=== PATIENT | female | born 1990 | race American Indian/Alaskan Native ===

== ENCOUNTER 2019-03-29 17:20 | Emergency (ER) | payer MEDICAID, OTHER ==
--- NOTE | 2019-03-29 17:32 | Event Note ---
ED Screening Note ED Screening Note: cough congestion fever and chills off and on for couple weeks pain in chest, wakes her at night also co wheezing started as sinus pt thinks mucous brown social etoh no cig no drugs rx none pmh none psh csec lmp 3 weeks ago has not seen MD This initial assessment/diagnostic orders/clinical plan/treatment(s) is/are subject to change based on patients health status, clinical progression and re- assessment by fellow clinical providers in the ED. Further treatment and workup at subsequent clinical providers discretion. Patient/guardian urged not to elope from the ED as their condition may be serious if not clinically assessed and managed. Initial orders include: xray basic labs
[2019-03-29] MEDS ORDERED: PERCOCET 5/325 PO STA (18:26)
[2019-03-29] MEDS ORDERED: LEVAQUIN PO STA (18:29)
--- NOTE | 2019-03-29 18:32 | Emergency Department Report ---
ED General Adult HPI - General Chief complaint: Upper Respiratory Infection Stated complaint: CHEST PAIN/SOB/PNEUMONIA Time Seen by Provider: 03/29/19 17:29 Source: patient Mode of arrival: Ambulatory Limitations: No Limitations - History of Present Illness Initial comments: 29-year-old Bulgarian female, since emergency department complaining of a 2 week history of cough, congestion, coryza, chills, headaches, loss of appetite. States she's been coughing excessively to the point where she is having some chest discomfort when she takes deep breaths and palpates the anterior aspect of her chest. She reports various episodes of nausea but no vomiting. She is comfortable. Blood phlegm been treating herself with Mucinex tried taking a couple amoxicillin, but the symptoms have not yet resolved. She reports no dysuria or hematuria. No rashes. - Related Data Home Medications Medication Instructions Recorded Confirmed Last Taken Citalopram [celeXA] 10 mg PO QDAY 02/17/14 08/26/15 Unknown Previous Rx's Medication Instructions Recorded Last Taken Type HYDROcodone/APAP 5-325 [[place] 1 each PO Q6HR PRN #10 tablet 02/17/14 Unknown Rx 5/325] Naproxen Sodium (Nf) [Anaprox DS] 550 mg PO BID #10 tablet 02/17/14 Unknown Rx Promethazine [Phenergan] 25 mg PO Q8HR PRN #10 tab 03/22/15 08/17/15 Rx Lidocain2.5%/Prilocai2.5% [Emla] 5 gm TP ONCE #1 tube 08/25/15 Unknown Rx oxyCODONE /ACETAMINOPHEN [Percocet 1 - 2 tab PO Q4HR PRN #30 tablet 08/25/15 Unknown Rx 5/325 mg] ALBUTEROL Inhaler (OR & NICU) 1 puff IH Q4-6H PRN #1 inha 03/29/19 Unknown Rx [ProAir HFA Inhaler] Amoxicillin/Potassium Clav 1 each PO BID #20 tablet 03/29/19 Unknown Rx [Augmentin 875-125 Tablet] guaiFENesin/CODEINE [Robitussin AC] 5 ml PO Q6H PRN #120 ml 03/29/19 Unknown Rx predniSONE [Deltasone] 50 mg PO QDAY #5 tab 03/29/19 Unknown Rx Allergies Allergy/AdvReac Type Severity Reaction Status Date / Time NSAIDS (Non-Steroidal Allergy Shortness Verified 08/05/15 09:24 Anti-Inflamma of Breath ED Review of Systems ROS: Stated complaint: CHEST PAIN/SOB/PNEUMONIA Other details as noted in HPI ED Past Medical Hx - Past Medical History Previous Medical History?: Yes Hx Hypertension: No Hx Congestive Heart Failure: No Hx Diabetes: No Hx Deep Vein Thrombosis: No Hx Renal Disease: No Hx Sickle Cell Disease: No Hx Seizures: No Hx Psychiatric Treatment: Yes (Anxiety) Hx Asthma: No Hx COPD: No Hx HIV: No - Surgical History Past Surgical History?: Yes Additional Surgical History: C section - Social History Smoking Status: Never Smoker Substance Use Type: Alcohol - Medications Home Medications: Home Medications Medication Instructions Recorded Confirmed Last Taken Type Citalopram [celeXA] 10 mg PO QDAY 02/17/14 08/26/15 Unknown History HYDROcodone/APAP 5-325 [[place] 1 each PO Q6HR PRN #10 tablet 02/17/14 08/26/15 Unknown Rx 5/325] Naproxen Sodium (Nf) [Anaprox DS] 550 mg PO BID #10 tablet 02/17/14 08/26/15 Unknown Rx Promethazine [Phenergan] 25 mg PO Q8HR PRN #10 tab 03/22/15 08/26/15 08/17/15 Rx Lidocain2.5%/Prilocai2.5% [Emla] 5 gm TP ONCE #1 tube 08/25/15 Unknown Rx oxyCODONE /ACETAMINOPHEN [Percocet 1 - 2 tab PO Q4HR PRN #30 tablet 08/25/15 Unknown Rx 5/325 mg] ALBUTEROL Inhaler (OR & NICU) 1 puff IH Q4-6H PRN #1 inha 03/29/19 Unknown Rx [ProAir HFA Inhaler] Amoxicillin/Potassium Clav 1 each PO BID #20 tablet 03/29/19 Unknown Rx [Augmentin 875-125 Tablet] guaiFENesin/CODEINE [Robitussin AC] 5 ml PO Q6H PRN #120 ml 03/29/19 Unknown Rx predniSONE [Deltasone] 50 mg PO QDAY #5 tab 03/29/19 Unknown Rx ED Physical Exam - General Limitations: No Limitations ED Course Vital Signs 03/29/19 17:30 Temperature 98.3 F Pulse Rate 83 Respiratory 18 Rate Blood Pressure 138/86 O2 Sat by Pulse 97 Oximetry Critical care attestation.: If time is entered above; I have spent that time in minutes in the direct care of this critically ill patient, excluding procedure time. ED Disposition Clinical Impression: Cough, Musculoskeletal chest pain, Sinusitis Disposition: DC-01 TO HOME OR SELFCARE Is pt being admited?: No Does the pt Need Aspirin: No Condition: Stable Instructions: Chest Pain (ED) Referrals: SHERITA XIE MD [Primary Care Provider] - 2-3 Days
--- NOTE | 2019-03-29 18:46 | XRay Report ---
CHEST 2 VIEWS INDICATION / CLINICAL INFORMATION: Cough, congestion and chills. COMPARISON: None available. FINDINGS: SUPPORT DEVICES: The patient's brassiere was left in place. HEART / MEDIASTINUM: The heart size and pulmonary vasculature are normal. LUNGS / PLEURA: No significant pulmonary or pleural abnormality. No pneumothorax. ADDITIONAL FINDINGS: No significant additional findings. IMPRESSION: No acute findings. There is no evidence of pneumonia. Signer Name: Mickey Clark MD Signed: 03/29/2019 6:41 PM Workstation Name: [id number]
[2019-03-29 21:17] VITALS: BP 124/78
== END 2019-03-29 20:20 | disposition home or self-care (01) ==
LOC: ED 17:20
DX: J32.9 Chronic sinusitis, unspecified (principal); R05 Cough; R07.89 Other chest pain; R11.0 Nausea; F41.9 Anxiety disorder, unspecified; Z79.899 Other long term (current) drug therapy; Z88.8 Allergy status to other drugs, medicaments and biological substances
CPT/HCPCS: 71046; 99283

== ENCOUNTER 2019-07-02 21:20 | Emergency (ER) | payer OTHER ==
[2019-07-02] MEDS ORDERED: ALBUTEROL 2.5 MG/3 ML NEBU IH ONE ×2 (21:30→21:56)
[2019-07-02] MEDS ORDERED: IPRATROPIUM 0.02% NEBU 2.5 ML IH ONE ×2 (21:30→21:56)
[2019-07-02] MEDS ORDERED: dexAMETHasone 20 MG/5 ML VIAL IV ONE (21:30)
[2019-07-02] MEDS ORDERED: SODIUM CHLORIDE 0.9% 1000 ML 1,000 ML IV ONE (21:30)
--- NOTE | 2019-07-02 21:32 | Event Note ---
ED Screening Note Date of service: 07/02/19 Time: 21:32 ED Screening Note: 29 y/o female with go times 1 hour. This initial assessment/diagnostic orders/clinical plan/treatment(s) is/are subject to change based on patients health status, clinical progression and re- assessment by fellow clinical providers in the ED. Further treatment and workup at subsequent clinical providers discretion. Patient/guardian urged not to elope from the ED as their condition may be serious if not clinically assessed and managed. Initial orders include:
[2019-07-02 21:39] VITALS: BP 118/87
[2019-07-02] MEDS ORDERED: MAGNESIUM SULFATE 2 GM/50 ML BAG IV ONE (21:57)
--- NOTE | 2019-07-02 22:18 | Emergency Department Report ---
ED Asthma HPI - General Chief Complaint: Dyspnea/Respdistress Stated Complaint: DIFF BREATHING Time Seen by Provider: 07/02/19 21:30 Source: patient Mode of arrival: Ambulatory Limitations: No Limitations - History of Present Illness Initial Comments: CC: I can't breathe. HPI: Genet is a 29 yo female with hx of asthma. She has had shortness of breath and wheezing. She states the night time air is her trigger. She has follow up with her pulmologist in 2 days on . She is also followed by her PCP. No cough. No chest pain. No fever. MD Complaint: "asthma attack" -: hour(s) (1) Severity: mild Context: other (night air) Associated Symptoms: none - Related Data Home Medications Medication Instructions Recorded Confirmed Last Taken Citalopram [celeXA] 10 mg PO QDAY 02/17/14 08/26/15 Unknown Previous Rx's Medication Instructions Recorded Last Taken Type HYDROcodone/APAP 5-325 [[place] 1 each PO Q6HR PRN #10 tablet 02/17/14 Unknown Rx 5/325] Naproxen Sodium (Nf) [Anaprox DS] 550 mg PO BID #10 tablet 02/17/14 Unknown Rx Promethazine [Phenergan] 25 mg PO Q8HR PRN #10 tab 03/22/15 08/17/15 Rx Lidocain2.5%/Prilocai2.5% [Emla] 5 gm TP ONCE #1 tube 08/25/15 Unknown Rx oxyCODONE /ACETAMINOPHEN [Percocet 1 - 2 tab PO Q4HR PRN #30 tablet 08/25/15 Unknown Rx 5/325 mg] ALBUTEROL Inhaler (OR & NICU) 1 puff IH Q4-6H PRN #1 inha 03/29/19 Unknown Rx [ProAir HFA Inhaler] Amoxicillin/Potassium Clav 1 each PO BID #20 tablet 03/29/19 Unknown Rx [Augmentin 875-125 Tablet] guaiFENesin/CODEINE [Robitussin AC] 5 ml PO Q6H PRN #120 ml 03/29/19 Unknown Rx predniSONE [Deltasone] 50 mg PO QDAY #5 tab 03/29/19 Unknown Rx ALBUTEROL Inhaler (OR & NICU) 2 puff IH QID PRN #8.5 gram 07/02/19 Unknown Rx [ProAir HFA Inhaler] Azithromycin [Zithromax TAB] 250 mg PO QDAY 4 Days #4 tablet 07/02/19 Unknown Rx Allergies Allergy/AdvReac Type Severity Reaction Status Date / Time NSAIDS (Non-Steroidal Allergy Shortness Verified 08/05/15 09:24 Anti-Inflamma of Breath ED Review of Systems ROS: Stated complaint: DIFF BREATHING Other details as noted in HPI Comment: All other systems reviewed and negative Constitutional: denies: fever, malaise Respiratory: denies: cough Cardiovascular: denies: chest pain ED Past Medical Hx - Past Medical History Previous Medical History?: Yes Hx Hypertension: No Hx Congestive Heart Failure: No Hx Diabetes: No Hx Deep Vein Thrombosis: No Hx Renal Disease: No Hx Sickle Cell Disease: No Hx Seizures: No Hx Psychiatric Treatment: Yes (Anxiety) Hx Asthma: Yes Hx COPD: No Hx HIV: No - Surgical History Past Surgical History?: Yes Additional Surgical History: C section - Social History Smoking Status: Never Smoker Substance Use Type: None - Medications Home Medications: Home Medications Medication Instructions Recorded Confirmed Last Taken Type Citalopram [celeXA] 10 mg PO QDAY 02/17/14 08/26/15 Unknown History HYDROcodone/APAP 5-325 [[place] 1 each PO Q6HR PRN #10 tablet 02/17/14 08/26/15 Unknown Rx 5/325] Naproxen Sodium (Nf) [Anaprox DS] 550 mg PO BID #10 tablet 02/17/14 08/26/15 Unknown Rx Promethazine [Phenergan] 25 mg PO Q8HR PRN #10 tab 03/22/15 08/26/15 08/17/15 Rx Lidocain2.5%/Prilocai2.5% [Emla] 5 gm TP ONCE #1 tube 08/25/15 Unknown Rx oxyCODONE /ACETAMINOPHEN [Percocet 1 - 2 tab PO Q4HR PRN #30 tablet 08/25/15 Unknown Rx 5/325 mg] ALBUTEROL Inhaler (OR & NICU) 1 puff IH Q4-6H PRN #1 inha 03/29/19 Unknown Rx [ProAir HFA Inhaler] Amoxicillin/Potassium Clav 1 each PO BID #20 tablet 03/29/19 Unknown Rx [Augmentin 875-125 Tablet] guaiFENesin/CODEINE [Robitussin AC] 5 ml PO Q6H PRN #120 ml 03/29/19 Unknown Rx predniSONE [Deltasone] 50 mg PO QDAY #5 tab 03/29/19 Unknown Rx ALBUTEROL Inhaler (OR & NICU) 2 puff IH QID PRN #8.5 gram 07/02/19 Unknown Rx [ProAir HFA Inhaler] Azithromycin [Zithromax TAB] 250 mg PO QDAY 4 Days #4 tablet 07/02/19 Unknown Rx ED Physical Exam - General Limitations: No Limitations General appearance: alert, in no apparent distress, anxious, other (speaking full sentences) - Head Head exam: Present: atraumatic, normocephalic - Eye Eye exam: Present: normal appearance - ENT ENT exam: Present: mucous membranes moist - Neck Neck exam: Present: normal inspection - Respiratory Respiratory exam: Present: normal lung sounds bilaterally. Absent: respiratory distress, wheezes, rales, rhonchi, chest wall tenderness, accessory muscle use, decreased breath sounds, prolonged expiratory - Cardiovascular Cardiovascular Exam: Present: regular rate, normal rhythm, normal heart sounds. Absent: systolic murmur, diastolic murmur, rubs, gallop - GI/Abdominal GI/Abdominal exam: Present: soft, normal bowel sounds. Absent: distended, tenderness, guarding, rebound - Extremities Exam Extremities exam: Present: normal inspection - Back Exam Back exam: Present: normal inspection - Neurological Exam Neurological exam: Present: alert, oriented X3 - Psychiatric Psychiatric exam: Present: normal affect, normal mood - Skin Skin exam: Present: warm, dry, intact, normal color. Absent: rash ED Course Vital Signs 07/02/19 07/02/19 21:27 22:11 Temperature 98.9 F Pulse Rate 107 H Pulse Rate [ 99 H Bilateral] Respiratory 26 H Rate Respiratory 26 H Rate [Bilateral ] Blood Pressure 118/87 O2 Sat by Pulse 100 Oximetry ED Medical Decision Making - Medical Decision Making mild asthma exacerbation, Normal lung exam. One dose prednisone provided in the ED. She previously had a course of steroids 3 weeks ago. Will give azithromycin for possible atypical infection. genet feels much better after treatment provided in the Ed. She is comfortable without work of breathing. Speaking with ease. Critical care attestation.: If time is entered above; I have spent that time in minutes in the direct care of this critically ill patient, excluding procedure time. ED Disposition Clinical Impression: Asthma exacerbation Disposition: DC-01 TO HOME OR SELFCARE Is pt being admited?: No Does the pt Need Aspirin: No Condition: Stable Instructions: Asthma (ED) Prescriptions: ALBUTEROL Inhaler (OR & NICU) [ProAir HFA Inhaler] 2 puff IH QID PRN #8.5 gram PRN Reason: Shortness Of Breath Azithromycin [Zithromax TAB] 250 mg PO QDAY 4 Days #4 tablet Forms: Work/School Release Form(ED)
[2019-07-02] MEDS ORDERED: AZITHROMYCIN 250 MG TAB PO ONE (22:19)
== END 2019-07-02 23:50 | disposition home or self-care (01) ==
LOC: ED 21:20
DX: J45.901 Unspecified asthma with (acute) exacerbation (principal); F41.9 Anxiety disorder, unspecified; Z79.899 Other long term (current) drug therapy; Z88.6 Allergy status to analgesic agent
CPT/HCPCS: 94644; 96365; 96375; 99283; J1100; J3475; J7030; 96361

== ENCOUNTER 2020-02-11 08:01 | Outpatient (CLI) | payer MEDICAID ==
[2020-02-11 08:40] VITALS: BP 126/74
[2020-02-11 09:04] LABS: Bacteria,Urine 1+ /HPF (Negative); Bilirubin,Urine NEG (Negative); Blood,Urine NEG (Negative); Color,Urine Colorless (Yellow); Protein,Urine <15 mg/dL mg/dL (Negative); Urobilinogen,Urine < 2.0 mg/dL (<2.0); WBC,Urine < 1.0 /HPF (0.0-6.0)
--- NOTE | 2020-02-11 09:12 | History and Physical Report ---
History of Present Illness Date of examination: 02/11/20 (leaking fluid >24hours @33w) Chief complaint: I have been "wet" since before I left [facility]. Past History - Obstetrical History Expected Date of Delivery: 03/30/20 Actual Gestation: 33 Week(s) 1 Day(s) : 3 Medications and Allergies Allergies Allergy/AdvReac Type Severity Reaction Status Date / Time NSAIDS (Non-Steroidal Allergy Shortness Verified 08/05/15 09:24 Anti-Inflamma of Breath Home Medications Medication Instructions Recorded Confirmed Last Taken Type Citalopram [celeXA] 10 mg PO QDAY 02/17/14 08/26/15 Unknown History HYDROcodone/APAP 5-325 [[place] 1 each PO Q6HR PRN #10 tablet 02/17/14 08/26/15 Unknown Rx 5/325] Naproxen Sodium (Nf) [Anaprox DS] 550 mg PO BID #10 tablet 02/17/14 08/26/15 Unknown Rx RX: Promethazine [Phenergan] 25 mg PO Q8HR PRN #10 tab 03/22/15 08/26/15 08/17/15 Rx Lidocain2.5%/Prilocai2.5% [Emla] 5 gm TP ONCE #1 tube 08/25/15 Unknown Rx RX: oxyCODONE /ACETAMINOPHEN 1 - 2 tab PO Q4HR PRN #30 tablet 08/25/15 Unknown Rx [Percocet 5/325 mg] Amoxicillin/Potassium Clav 1 each PO BID #20 tablet 03/29/19 Unknown Rx [Augmentin 875-125 Tablet] RX: Albuterol INH(or & Nicu Only) 1 puff IH Q4-6H PRN #1 inha 03/29/19 Unknown Rx [ProAir HFA Inhaler] RX: predniSONE [Deltasone] 50 mg PO QDAY #5 tab 03/29/19 Unknown Rx guaiFENesin/CODEINE [Robitussin AC] 5 ml PO Q6H PRN #120 ml 03/29/19 Unknown Rx RX: Albuterol INH(or & Nicu Only) 2 puff IH QID PRN #8.5 gram 07/02/19 Unknown Rx [ProAir HFA Inhaler] RX: Azithromycin [Zithromax TAB] 250 mg PO QDAY 4 Days #4 tablet 07/02/19 Unknown Rx - Vital Signs Vital signs: Vital Signs Pulse Pulse Ox 78 100 02/11/20 08:29 02/11/20 08:29 Temp Pulse Resp BP Pulse Ox 97.7 F 75 16 126/74 97 02/11/20 08:32 02/11/20 08:49 02/11/20 08:32 02/11/20 08:39 02/11/20 08:49 Results All other labs normal.
--- NOTE | 2020-02-11 09:43 | Ultrasound Report ---
Limited OB Ultrasound Biophysical profile HISTORY: AMANDEEP. TECHNIQUE: Grayscale and color imaging performed. COMPARISON: No recent relevant comparison exam is available. FINDINGS: There is a single viable intrauterine gestation with cephalic presentation. The AMANDEEP is 8 cm . Heart rate is 156 bpm. On biophysical profile, the fetus received a score of 2 out of 2 for breathing movement, movement, po sture/tone, and qualitative AMANDEEP. Total score was 8 out of 8. IMPRESSION: 1. Single viable intrauterine gestation as above with AMANDEEP of 8 cm. 2. Normal BPP. Signer Name: Cristóbal Calderon MD Signed: 02/11/2020 9:38 AM Workstation Name: [id number]
== END 2020-02-11 10:26 | disposition home or self-care (01) ==
LOC: APU 08:01 → TRG 08:01
PROVIDERS: ATTEND Obstetrics & Gynecology
DX: O99.89 Other specified diseases and conditions complicating pregnancy, childbirth and the puerperium (principal); N89.8 Other specified noninflammatory disorders of vagina; Z3A.33 33 weeks gestation of pregnancy
CPT/HCPCS: 59025; 76815; 76819; 81001

== ENCOUNTER 2020-03-24 05:35 | Inpatient (IN) | payer OTHER, MEDICAID ==
--- NOTE | 2020-03-23 13:14 | History and Physical Report ---
History of Present Illness Date of examination: 03/20/20 Chief complaint: Repeat C/S History of present illness: Past History : 3 Term Births: 1 Premature Births: 0 Living Children: 1 Para: 1 Mult. Births: 0 Prev : 1 Aborta: 1 Elect. Ab: 1 Spont. 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 Infection History Hx of STD: none HIV Risk Eval: low risk Hepatitis B Risk Eval: low risk Genetic History Congenital Heart Defect: Mom: no Dad: no Diane Disease: Mom: no Dad: no Thalassemia Mom: no Dad: no Neural Tube Defect Mom: no Dad: no Down's Syndrome Mom: no Dad: no Cristhian-Sachs Mom: no Dad: no Sickle Cell Disease/Trait Mom: no Dad: no Hemophilia Mom: no Dad: no Muscular Dystrophy Mom: no Dad: no Cystic Fibrosis Mom: no Dad: no [place] Chorea Mom: no Dad: no Mental Retardation Mom: no Dad: no Fragile X Mom: no Dad: no Other Genetic/Chromosomal Disorder Mom: no Dad: no Child w/other defect Mom: no Dad: no Enviromental Exposures Xray Exposure: yes Medication, drug, or alcohol use since LMP: no Chemical/Other Exposure: no Exposure to Cat Liter: no Hx of Parvovirus (Fifth Disease): no Comments: CXR 07/2019 Current Allergies (reviewed today): TRAMADOL (Critical) TYLENOL (Critical) Physical Exam General appearance: well nourished, healthy appearing, no distress Chest/Lungs: respiratory effort normal, lungs clear to auscultation Cardiovascular: normal rate and rhythm Abdomen/GI: soft, nontender Neuro: grossly normal DTRs, sensation, strength, cranial nerves Extremities: no discoloration or edema Problem # 1: Maternal care for low transverse scar from previous delivery (DHD61-H53.211) Consent reviewed and signed. The risks and alternatives for this surgery were reviewed with the patient. She was informed of possible bleeding, infection, injury to bowel, bladder, ureters or other adjacent organs. The patient was instructed/informed the following: The normal length of hospital stay for this procedure. Nothing to eat or drink after midnight the evening prior to surgery. Clear liquids until 3hour prio to arriving at hospital The usual discomforts associated with this procedure were detailed. Proper use of pain medicines was reviewed. Patient was given ample opportunity to have all her questions answered before signing informed consent. She declines sterilization at this time. Problem # 2: GBS positive (ICD-V02.51) (OVQ99-S76.330) Problem # 3: Supervision of other high risk pregnancies, third trimester (ICD- V23.89) (RLS71-Y32.893) Problem # 4: Supervision of with insufficient care, third trimester (ICD-V23.7) (LZV67-Y11.33) Problem # 5: Low grade squamous intraepithelial lesion on cytologic smear of cervix (LGSIL) (ICD-795.03) (UMR16-F50.612) Problem # 6: Asthma (ICD-493.90) (VMT14-G87.909) Her updated medication list for this problem includes: Symbicort Aerosol (Budesonide-formoterol fumarate aero) Prednisone Tablet (Prednisone tabs) Past History - Obstetrical History Expected Date of Delivery: 03/30/20 Actual Gestation: 39 Week(s) 0 Day(s) : 3 Medications and Allergies Allergies Allergy/AdvReac Type Severity Reaction Status Date / Time NSAIDS (Non-Steroidal Allergy Shortness Verified 08/05/15 09:24 Anti-Inflamma of Breath Home Medications Medication Instructions Recorded Confirmed Last Taken Type Citalopram [celeXA] 10 mg PO QDAY 02/17/14 08/26/15 Unknown History HYDROcodone/APAP 5-325 [[place] 1 each PO Q6HR PRN #10 tablet 02/17/14 08/26/15 Unknown Rx 5/325] Naproxen Sodium (Nf) [Anaprox DS] 550 mg PO BID #10 tablet 02/17/14 08/26/15 Unknown Rx Promethazine [Phenergan] 25 mg PO Q8HR PRN #10 tab 03/22/15 08/26/15 08/17/15 Rx Lidocain2.5%/Prilocai2.5% [Emla] 5 gm TP ONCE #1 tube 08/25/15 Unknown Rx oxyCODONE /ACETAMINOPHEN [Percocet 1 - 2 tab PO Q4HR PRN #30 tablet 08/25/15 Unknown Rx 5/325 mg] Albuterol Mdi (or & Nicu Only) 1 puff IH Q4-6H PRN #1 inha 03/29/19 Unknown Rx [ProAir HFA Inhaler] Amoxicillin/Potassium Clav 1 each PO BID #20 tablet 03/29/19 Unknown Rx [Augmentin 875-125 Tablet] guaiFENesin/CODEINE [Robitussin AC] 5 ml PO Q6H PRN #120 ml 03/29/19 Unknown Rx predniSONE [Deltasone] 50 mg PO QDAY #5 tab 03/29/19 Unknown Rx Albuterol Mdi (or & Nicu Only) 2 puff IH QID PRN #8.5 gram 07/02/19 Unknown Rx [ProAir HFA Inhaler] Azithromycin [Zithromax TAB] 250 mg PO QDAY 4 Days #4 tablet 07/02/19 Unknown Rx Active Meds: Active Medications Citric Acid/Sodium Citrate (Bicitra) 30 ml PO ONCE ONE Stop: 03/24/20 06:31 Famotidine (Pepcid) 20 mg IV ONCE ONE Stop: 03/24/20 06:31 Oxytocin/Sodium Chloride (Pitocin/Ns 20 Unit/1000ml Drip) 20 units in 1,000 mls @ 0 mls/hr IV TITR LIZZY Lactated Ringer's (Lactated Ringers) 1,000 mls @ 2,250 mls/hr IV PREOP LIZZY Stop: 03/25/20 05:57 Cefazolin Sodium (Ancef/Sterile Water 2 Gm/20 Ml) 2 gm in 20 mls @ 80 mls/hr IV PREOP NR; Protocol Metoclopramide HCl (Reglan) 10 mg IV ONCE ONE Stop: 03/24/20 06:31 Results All other labs normal. Assessment and Plan - Patient Problems (1) 39 weeks gestation of Status: Acute (2) Maternal care due to low transverse uterine scar from previous delivery Status: Chronic (3) Asthma Status: Chronic (4) GBS (group B Streptococcus carrier), +RV culture, currently Status: Acute
[~2020-03-24 05:35] MED LIST: LACTATED RINGERS 1,000 ML IV SCH; OXYTOCIN 20 UNIT/1000ML DRIP 20 UNITS/1,000 ML BAG IV SCH
--- NOTE | 2020-03-24 06:15 | Anesthesia Day of Surgery ---
Anesthesia Day of Surgery - Day of Surgery Patient Examined: Yes Patient H&P Reviewed: Yes Patient is NPO: Yes Beta Blockers: No Cardiac Clearance: No Pulmonary Clearance: No Eron's Test: N/A
--- NOTE | 2020-03-24 06:20 | Anesthesia Consultation ---
Anesthesia Consult and Med Hx Date of service: 03/24/20 - Airway Anesthetic Teeth Evaluation: Good ROM Head & Neck: Adequate Mental/Hyoid Distance: Adequate Mallampati Class: Class II Intubation Access Assessment: Probably Good - Pulmonary Exam CTA: No (wheezing left upper) - Cardiac Exam Cardiac Exam: RRR - Pre-Operative Health Status ASA Pre-Surgery Classification: ASA3 Proposed Anesthetic Plan: Spinal - Pulmonary Hx Smoking: Yes (stop 6yrs) Hx Asthma: Yes (used 3wks ago) Hx Respiratory Symptoms: No SOB: No COPD: No Home Oxygen Therapy: No Hx Pneumonia: No Hx Sleep Apnea: No - Cardiovascular System Hx Hypertension: No Hx Coronary Artery Disease: No Hx Heart Attack/AMI: No Hx Angina: No Hx Percutaneous Transluminal Coronary Angioplasty (PTCA): No Hx Cardia Arrhythmia: No Hx Pacemaker: No Hx Internal Defibrillator: No Hx Valvular Heart Disease: No Hx Heart Murmur: No Hx Peripheral Vascular Disease: No - Central Nervous System Hx Neuromuscular Disorder: Yes (back and neck pain with arm pain) Hx Seizures: No CVA: No Hx Back Pain: Yes Hx Psychiatric Problems: Yes (anxiety) - Gastrointestinal Hx Ulcer: No Hx Gastroesophageal Reflux Disease: Yes - Endocrine Hx Renal Disease: No Hx End Stage Renal Disease: No Hx Cirrhosis: No Hx Liver Disease: No Hx Insulin Dependent Diabetes: No Hx Non-Insulin Dependent Diabetes: No Hx Thyroid Disease: No Hx Hypothyroidism: No Hx Hyperthyroidism: No - Hematic Hx Anemia: No Hx Sickle Cell Disease: No - Other Systems Hx Alcohol Use: No Hx Substance Use: No Hx Cancer: No Hx Obesity: Yes
[2020-03-24] MEDS ORDERED: ONDANSETRON 4 MG/2 ML INJ IV PRN (06:26)
[2020-03-24] MEDS ORDERED: HYDROmorphone 1 MG/1 ML INJ IV PRN (06:26)
[2020-03-24] MEDS ORDERED: NALOXONE 0.4 MG/1 ML INJ IV PRN ×2 (06:26→11:34)
[2020-03-24] MEDS ORDERED: METOCLOPRAMIDE 10 MG/2 ML INJ IV ONE (06:30)
[2020-03-24] MEDS ORDERED: BICITRA ORAL LIQD 30ML PO ONE (06:30)
[2020-03-24] MEDS ORDERED: FAMOTIDINE 20 MG/2 ML INJ IV ONE (06:30)
[2020-03-24] MEDS ORDERED: ceFAZolin/Water 2 GM/20 ML 2 GM/20 ML SYRINGE IV NR (06:30)
[2020-03-24] MEDS ORDERED: DEXMEDETOMIDINE 200 MCG/2 ML VIAL IV ONE (06:41)
[2020-03-24] MEDS ORDERED: ONDANSETRON 4 MG/2 ML INJ ONE (06:41)
[2020-03-24 07:10] LABS: Hematocrit 37.4 % (30.3-42.9); Hemoglobin 12.3 gm/dl (10.1-14.3); Mean Corpuscular HGB Conc 33 % (30-34); Mean Corpuscular Volume 89 fl (79-97); Platelet Count 286 K/mm3 (140-440); Red Blood Count 4.21 M/mm3 (3.65-5.03); Red Cell Distribution Width 13.7 % (13.2-15.2)
[2020-03-24] MEDS ORDERED: SODIUM CHLORIDE 0.9% IRR 1,500 ML BOTTLE IR ONE (07:56)
[2020-03-24] MEDS ORDERED: WATER FOR IRRIG STERILE 1,500 ML BOTTLE IR ONE (07:56)
[2020-03-24] MEDS ORDERED: PHENYLEPHRINE/NS 1,000 MCG/10 ML SYRINGE (OR USE) IV ONE (07:56)
[2020-03-24] MEDS ORDERED: ceFAZolin/STERILE WATER 2 GM/20 ML SYRINGE IV ONE (08:04)
[2020-03-24] MEDS ORDERED: SODIUM CHLORIDE 0.9% 500 ML 500 ML ONE (08:26)
[2020-03-24] MEDS ORDERED: BUPIVACAINE /DEX-WATER 0.75% (2 ML) AMPULE INFILTRATI ONE (08:28)
[2020-03-24] MEDS ORDERED: BUPIVACAINE/PF (0.5%) 5 MG/1 ML 30 ML VIAL INFILTRATI ONE (08:28)
--- NOTE | 2020-03-24 09:29 | Operative Report ---
Operative Report Operative Report: Date of operation: 03/24/2020 Pre-operative diagnosis: 1. 39 weeks gestational age 2. Previous delivery desires repeat 3. GBS positive 4. BMI 41.2 kg/m 5. Asthma Post-operative diagnosis: 1. 39 weeks gestational age 2. Previous delivery desires repeat 3. GBS positive 4. BMI 41.2 kg/m 5. Asthma Procedure name(s): Low transverse delivery Surgeon: Mariluz Garland MD Medical Office Clerk: Savana Messina CNM Anesthesia: Spinal EBL: 800 mL Urine output: 250 mL of clear urine out at the end of the procedure Fluids: 2000 mL Findings: Liveborn male weight 6 Lbs. 10 oz. Apgars of 8 and 9 at one and 5 minutes. Grossly normal tubes and ovaries and uterus Indications: [] Procedure: Patient was taking to the operating room. Spinal anesthesia was placed. Patient was then prepped and draped in the usual sterile fashion Timeout was performed. Once an appropriate level of anesthesia was noted, a Pfannenstiel incision was made and extended the fascia which was incised and extended lateral direction. The overlying fascia was sharply dissected away from the underlying rectus muscles in the superior inferior direction. The midline was entered bluntly. Bladder blade was placed. Vesicouterine fold was incised with blunt dissection bladder flap was created. A transverse incision was made in the lower uterine segment and extended superolateral direction with finger fractionation. Clear fluid was noted. was delivered from the cephalic R OT position, with spontaneous cry and excellent tone. Mouth and nose bulb suctioned. Cord was doubly clamped and cut was given to the resuscitation team present. Placenta was delivered. The uterus was exteriorized and cleaned of any further placental tissue and products of conception. Uterine incision was approximated using 0 Vicryl in a running interlocking stitch followed by further suture of 0 Vicryl in imbricating fashion. When hemostasis was noted the uterus was allowed back in the pelvic cavity. Pelvis was irrigated with warm normal saline. Once hemostasis was noted the rectus muscles were approximated using 0 Vicryl interrupted simple stitches 3. Once hemostasis was noted the fascia was approximated using 0 Vicryl simple running stitch. The incision was irrigated with warm saline, once hemostasis as noted, the subcuticular adipose tissue was reapproximated using 3-0 Vicryl in a simple running fashion. Skin was approximated using 4-0 Vicryl on a Rodri needle in a subcuticular manner. Counts were correct x3. Patient tolerated the procedure well, she was taken to recovery room in stable condition.
[2020-03-24] MEDS ORDERED: LANOLIN/ZINC/DIMETHICONE (LANSINOH) 7 GM TP PRN (11:34)
[2020-03-24] MEDS ORDERED: D5W/LACTATED RINGERS 1,000 ML IV SCH (11:34)
[2020-03-24] MEDS ORDERED: MORPHINE 2 MG/1 ML INJ IV PRN (11:34)
[2020-03-24] MEDS ORDERED: OXYTOCIN 20 UNIT/1000ML DRIP 20 UNITS/1,000 ML BAG IV SCH (11:34)
[2020-03-24] MEDS ORDERED: WITCH HAZEL/ GLYCERIN PAD TP PRN (11:34)
[2020-03-24] MEDS ORDERED: ACETAMINOPHEN 325 MG TAB PO SCH (12:00)
[2020-03-24] MEDS: MORPHINE 4 MG/1 ML INJ IV PRN ×2 (12:19→21:47)
[2020-03-24] MEDS: ACETAMINOPHEN 500 MG TAB PO SCH ×2 (12:49→17:02)
[2020-03-24] MEDS: ceFAZolin/NS 1 GM/50 ML 1 GM/50 ML BAG IV SCH (15:08)
[2020-03-24] MEDS: GABAPENTIN 100 MG CAP PO SCH ×2 (15:08→23:00)
--- NOTE | 2020-03-24 21:25 | Post Anesthesia Evaluation ---
- Post Anesthesia Evaluation Patient Participated: Yes Airway Patent: Yes Stable Respiratory Function: Yes Nausea/Vomiting: No Temp > 96.8F: Yes Pain Manageable: Yes Adequeate Hydration: Yes Anesthesia Complications: No Block Receding Appropriately: Yes Patient on Ventilator: No
[2020-03-24 22:18] LABS: Hematocrit 34.6 % (30.3-42.9); Hemoglobin 11.2 gm/dl (10.1-14.3)
[2020-03-25] MEDS: ceFAZolin/NS 1 GM/50 ML 1 GM/50 ML BAG IV SCH (00:56)
[2020-03-25] MEDS: MORPHINE 4 MG/1 ML INJ IV PRN (04:48)
[2020-03-25] MEDS: GABAPENTIN 100 MG CAP PO SCH ×2 (06:41→15:01)
--- NOTE | 2020-03-25 07:17 | Progress Note ---
Assessment and Plan Pt req binder Nurse will place and remove dressing. VSS H&H Stable day 1 s/p c/s P: continue pathway Advance diet and activity as tolerated Subjective - Subjective Date of service: 03/25/20 (requests binder) Principal diagnosis: Day # 1 s/p repeat section Patient reports: voiding normally, pain well controlled, ambulating normally : doing well Objective - Vital Signs Latest vital signs: Vital Signs Temp Pulse Resp BP BP Pulse Ox 03/25/20 04:00 98.6 F 69 16 113/72 03/25/20 00:00 98.7 F 71 18 105/79 03/24/20 19:30 98.6 F 66 16 102/77 03/24/20 17:02 18 03/24/20 16:41 97.8 F 82 18 120/54 97 03/24/20 12:49 18 03/24/20 12:19 18 03/24/20 10:50 98.6 F 85 19 116/65 100 03/24/20 10:30 98.0 F 78 18 116/64 100 03/24/20 10:15 84 16 102/55 100 03/24/20 10:00 86 15 105/66 100 03/24/20 09:45 89 14 97/60 100 03/24/20 09:35 86 16 90/60 100 03/24/20 09:30 88 19 100/57 99 03/24/20 09:22 97.7 F 97 H 18 95/57 100 03/24/20 07:30 98.0 F 86 16 116/66 100 03/24/20 07:27 86 116/66 Intake and Output 03/24/20 03/25/20 03/25/20 22:59 06:59 14:59 Intake Total 250 Output Total 2450 1999 Balance -2199 Intake: IV 50 ANCEF/NS 1 GM/50 ML 1 gm 50 In 50 ml @ 100 mls/hr IV Q8H [facility] Rx#:[id number] Oral 200 Output: Urine 2450 1999 Indwelling Catheter 2450 Void 1999 Other: Total, Intake Amount 200 Total, Output Amount 650 800 # Voids Indwelling Catheter 1 Void 1 - Exam Breasts: Present: normal Cardiovascular: Present: Regular rate Lungs: Present: Normal air movement Abdomen: Present: normal appearance, soft, normal bowel sounds Uterus: Present: normal, fundal height below umbilicus Extremities: Present: normal Incision: Present: normal, dry, intact, dressed
[2020-03-25] MEDS: oxyCODONE /ACETAMINOPHEN 5-325MG TAB PO PRN ×3 (07:40→20:36)
[2020-03-25] MEDS ORDERED: ACETAMINOPHEN 325 MG TAB PO PRN (09:19)
[2020-03-25] MEDS ORDERED: DIPHtheria,PERTUSSIS(ACELL),TETANUS VACCINE/PF 0.5 ML VIAL IM ONE (09:22)
[2020-03-26] MEDS: oxyCODONE /ACETAMINOPHEN 5-325MG TAB PO PRN ×3 (02:24→20:24)
--- NOTE | 2020-03-26 07:53 | Discharge Summary ---
Providers - Providers Date of Admission: 03/24/20 05:35 Date of discharge: 03/26/20 (Pt agrees with D/C home today) Attending physician: MANAS SILVA 03/24/20 11:34 Consult to Fancy Stitcher [CONS] Routine Reason For Exam: Primary care physician: MANAS SILVA Hospitalization Reason for admission: section Delivery: Procedure: repeat low transverse Episiotomy: none Laceration: none Incision: normal, dry, intact Other procedures: none complications: none Discharge diagnosis: IUP at term delivered [place] baby: male Pertinent studies: Post-op H/H Hospital course: 30 y.o. female, , repeat C/S at 39 weeks gestation. Uncomplicated repeat C/S and PP course. P: D/C home today. F/U in office in 1 week for incision check. Condition at discharge: Good Disposition: DC-01 TO HOME OR SELFCARE - Discharge Diagnoses (1) delivery, delivered, current hospitalization Status: Acute Comment: Pt laying in bed quietly. No visible s/s of distress. VSSAF. Pain well managed with pain medication. Ambulating and voiding without difficulty. +flatus. Incision clean, dry, intact, and open to air. Fundus firm at umbilicus. Light vaginal bleeding. Breast and formula feeding. Desires circumcision at 8 days of life. No plans for PP contraception at this time. P: D/C home today. F/U in 1 week for incision check. Plan - Discharge Medications Prescriptions: Lidocain2.5%/Prilocai2.5% [Emla] 5 gm TP ONCE #1 tube oxyCODONE /ACETAMINOPHEN [Percocet 5/325 mg] 1 - 2 tab PO Q6HR PRN #20 tablet PRN Reason: Pain - Provider Discharge Summary Activity: no sex for 6 weeks, no heavy lifting 4 weeks, no strenuous exercise Diet: routine Additional instructions: [] Smoking cessation referral if applicable(refer to patient education folder for contact #) [] Refer to [facility] Booklet Call your doctor immediately for: * Fever > 100.5 * Heavy vaginal bleeding ( >1 pad per hour) * Severe persistent headache * Shortness of breath * Reddened, hot, painful area to leg or breast * Drainage or odor from incision. * Keep incision clean and dry at all times and follow doctor's instructions regarding bathing/showering - Follow up plan Follow up: MANAS SILVA MD [Primary Care Provider] - 7 Days (Congratulations! Please contact our office at [phone] to schedule your son's circumcision appointment in 1-week. Bring EMLA cream to his appointment for further instruction. Also call to schedule your 1-week incision check appointment. Feel free to contact us with any questions or concerns. )
[2020-03-26] MEDS ORDERED: ALBUTEROL 2.5 MG/3 ML NEBU IH PRN ×2 (19:31→19:45)
[2020-03-26] MEDS ORDERED: ALBUTEROL 8.5 GM MDI INHALATION IH PRN (19:35)
[2020-03-27] MEDS: oxyCODONE /ACETAMINOPHEN 5-325MG TAB PO PRN ×3 (05:14→19:36)
[2020-03-27 17:39] VITALS: BP 98/48
== END 2020-03-27 21:40 | disposition home or self-care (01) | DRG 788 ==
LOC: APU 05:35 → OB 11:19
PROVIDERS: ADMIT Obstetrics & Gynecology; ATTEND Obstetrics & Gynecology
PROC: 10D00Z1 Extraction of Products of Conception, Low, Open Approach (ICD-10-PCS; principal; 2020-03-24)
PROC: 3E0234Z Introduction of Serum, Toxoid and Vaccine into Muscle, Percutaneous Approach (ICD-10-PCS; 2020-03-25)
DX: O99.824 Streptococcus B carrier state complicating childbirth (principal); O34.211 Maternal care for low transverse scar from previous cesarean delivery; J45.909 Unspecified asthma, uncomplicated; O99.52 Diseases of the respiratory system complicating childbirth; O99.344 Other mental disorders complicating childbirth; F41.9 Anxiety disorder, unspecified; O99.62 Diseases of the digestive system complicating childbirth; K21.9 Gastro-esophageal reflux disease without esophagitis; O99.214 Obesity complicating childbirth; E66.9 Obesity, unspecified; Z3A.39 39 weeks gestation of pregnancy; Z37.0 Single live birth; Z87.891 Personal history of nicotine dependence; Z79.899 Other long term (current) drug therapy
CPT/HCPCS: 36415; 85014; 85018; 85027; 86592; 86850; 86900; 86901; 94640; G0378; A6250; C1765; J0690; J2270; J2370; J2405; J2590; J2765; J3490; J7040; J7120

== ENCOUNTER 2020-06-26 16:10 | Emergency (ER) | payer OTHER, MEDICAID ==
[2020-06-26 16:52] VITALS: BP 151/77
--- NOTE | 2020-06-26 17:08 | Emergency Department Report ---
Chief Complaint: Laceration/Recheck/Suture Stated Complaint: C SECTION/OPEN WOUND Time Seen by Provider: 06/26/20 16:58 - HPI History of Present Illness: 30-year-old -[place] female presents to the emergency room stating that her incision from her that she had 13 weeks ago has opened up. Patient denies any discharge no pain pain only from the tearing of the skin. Patient states that she tried going to her OB they referred her to urgent care urgent care referred her to the emergency room. 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 Garland. - Exam Vital Signs: Vital Signs 06/26/20 16:50 Temperature 97.6 F Pulse Rate 91 H Respiratory 18 Rate Blood Pressure 151/77 O2 Sat by Pulse 100 Oximetry Physical Exam: Alert and oriented x3 no acute distress nontoxic in appearance Skin eraser size opening to the epidermis mild tenderness no discharge no smell no drainage no erythematous. Ambulatory without difficulties MSE screening note: Focused history and physical exam performed. Due to findings the following was ordered: 30-year-old -[place] female presents to the emergency room stating that her incision from her that she had 13 weeks ago has opened up. Patient denies any discharge no pain pain only from the tearing of the skin. Patient states that she tried going to her OB they referred her to urgent care urgent care referred her to the emergency room. 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 Garland. Steri-Strips Band-Aid placed referral to Dr. Garland. ED Disposition for MSE Disposition: DC-01 TO HOME OR SELFCARE Is pt being admited?: No Does the pt Need Aspirin: No Condition: Stable Additional Instructions: Keep wound clean and dry. Band-Aid and follow-up with OB. Referrals: MANAS GARLAND MD [Staff Physician] - 3-5 Days
== END 2020-06-26 17:00 | disposition left against medical advice (07) ==
LOC: ED 16:10
DX: G89.18 Other acute postprocedural pain (principal); Z53.21 Procedure and treatment not carried out due to patient leaving prior to being seen by health care provider

== ENCOUNTER 2021-02-14 22:41 | Emergency (ER) | payer OTHER, MEDICAID ==
[2021-02-15 00:11] VITALS: BP 132/74
--- NOTE | 2021-02-15 00:52 | XRay Report ---
XR ankle 3+V LT INDICATION / CLINICAL INFORMATION: injuryy fell down stairs. TODAY. COMPARISON: None available. FINDINGS: No acute fracture. Normal alignment. Joint spaces are preserved. No destructive osseous lesion or s uspicious periosteal reaction. Impression: 1.No acute fracture. Signer Name: Wisam Ayon MD Signed: 02/15/2021 12:47 AM Workstation Name: [id number]
[2021-02-15] MEDS ORDERED: oxyCODONE /ACETAMINOPHEN 5-325MG TAB PO ONE (02:34)
--- NOTE | 2021-02-15 02:42 | Emergency Department Report ---
ED Lower Extremity HPI - General Chief Complaint: Extremity Injury, Lower Stated Complaint: INJURY TO LEFT ANKLE Time Seen by Provider: 02/15/21 02:20 Source: patient Mode of arrival: Wheelchair Limitations: No Limitations - History of Present Illness Initial Comments: 31-year-old obese F [place] female was walking down the steps at her house when she had a misstep and rolled her ankle causing her to fall on the ground and having pain to the left ankle area which is worse with palpation and range of motion. States and inability to ambulate due to the discomfort. MD Complaint: ankle injury -: Sudden Injury: Ankle: Left Type of Injury: inversion Place: home Severity: mild, moderate Worsens With: weight bearing, movement, palpation Associated Symptoms: snap/pop sensation, swelling, able to partially bear weight - Related Data Home Medications Medication Instructions Recorded Confirmed Last Taken Citalopram [celeXA] 10 mg PO QDAY 02/17/14 03/25/20 Unknown Previous Rx's Medication Instructions Recorded Last Taken Type HYDROcodone/APAP 5-325 [[place] 1 each PO Q6HR PRN #10 tablet 02/17/14 Unknown Rx 5/325] Naproxen Sodium (Nf) [Anaprox DS] 550 mg PO BID #10 tablet 02/17/14 Unknown Rx Promethazine [Phenergan] 25 mg PO Q8HR PRN #10 tab 03/22/15 08/17/15 Rx Lidocain2.5%/Prilocai2.5% [Emla] 5 gm TP ONCE #1 tube 08/25/15 Unknown Rx oxyCODONE /ACETAMINOPHEN [Percocet 1 - 2 tab PO Q4HR PRN #30 tablet 08/25/15 Unknown Rx 5/325 mg] Albuterol Mdi (or & Nicu Only) 1 puff IH Q4-6H PRN #1 inha 03/29/19 Unknown Rx [ProAir HFA Inhaler] Amoxicillin/Potassium Clav 1 each PO BID #20 tablet 03/29/19 Unknown Rx [Augmentin 875-125 Tablet] guaiFENesin/CODEINE [Robitussin AC] 5 ml PO Q6H PRN #120 ml 03/29/19 Unknown Rx predniSONE [Deltasone] 50 mg PO QDAY #5 tab 03/29/19 Unknown Rx Albuterol Mdi (or & Nicu Only) 2 puff IH QID PRN #8.5 gram 07/02/19 Unknown Rx [ProAir HFA Inhaler] Azithromycin [Zithromax TAB] 250 mg PO QDAY 4 Days #4 tablet 07/02/19 Unknown Rx Lidocain2.5%/Prilocai2.5% [Emla] 5 gm TP ONCE #1 tube 03/24/20 Unknown Rx oxyCODONE /ACETAMINOPHEN [Percocet 1 - 2 tab PO Q6HR PRN #20 tablet 03/24/20 Unknown Rx 5/325 mg] traMADoL [Ultram] 50 mg PO Q4HR PRN #20 tablet 02/15/21 Unknown Rx Allergies Allergy/AdvReac Type Severity Reaction Status Date / Time NSAIDS (Non-Steroidal Allergy Shortness Verified 08/05/15 09:24 Anti-Inflamma of Breath ED Review of Systems ROS: Stated complaint: INJURY TO LEFT ANKLE Other details as noted in HPI Comment: All other systems reviewed and negative ED Past Medical Hx - Past Medical History Hx Hypertension: No Hx Heart Attack/AMI: No Hx Congestive Heart Failure: No Hx Diabetes: No Hx Deep Vein Thrombosis: No Hx Liver Disease: No Hx Renal Disease: No Hx Sickle Cell Disease: No Hx Seizures: No Hx Psychiatric Treatment: Yes (Anxiety) Hx Asthma: Yes (used 3wks ago) Hx COPD: No Hx HIV: No - Surgical History Hx Pacemaker: No Hx Internal Defibrillator: No Additional Surgical History: C section x2 - Social History Smoking Status: Never Smoker Substance Use Type: None - Medications Home Medications: Home Medications Medication Instructions Recorded Confirmed Last Taken Type Citalopram [celeXA] 10 mg PO QDAY 02/17/14 03/25/20 Unknown History HYDROcodone/APAP 5-325 [[place] 1 each PO Q6HR PRN #10 tablet 02/17/14 03/25/20 Unknown Rx 5/325] Naproxen Sodium (Nf) [Anaprox DS] 550 mg PO BID #10 tablet 02/17/14 03/25/20 Unknown Rx Promethazine [Phenergan] 25 mg PO Q8HR PRN #10 tab 03/22/15 03/25/20 08/17/15 Rx Lidocain2.5%/Prilocai2.5% [Emla] 5 gm TP ONCE #1 tube 08/25/15 03/25/20 Unknown Rx oxyCODONE /ACETAMINOPHEN [Percocet 1 - 2 tab PO Q4HR PRN #30 tablet 08/25/15 03/25/20 Unknown Rx 5/325 mg] Albuterol Mdi (or & Nicu Only) 1 puff IH Q4-6H PRN #1 inha 03/29/19 03/25/20 Unknown Rx [ProAir HFA Inhaler] Amoxicillin/Potassium Clav 1 each PO BID #20 tablet 03/29/19 03/25/20 Unknown Rx [Augmentin 875-125 Tablet] guaiFENesin/CODEINE [Robitussin AC] 5 ml PO Q6H PRN #120 ml 03/29/19 03/25/20 Unknown Rx predniSONE [Deltasone] 50 mg PO QDAY #5 tab 03/29/19 03/25/20 Unknown Rx Albuterol Mdi (or & Nicu Only) 2 puff IH QID PRN #8.5 gram 07/02/19 03/25/20 Unknown Rx [ProAir HFA Inhaler] Azithromycin [Zithromax TAB] 250 mg PO QDAY 4 Days #4 tablet 07/02/19 03/25/20 Unknown Rx Lidocain2.5%/Prilocai2.5% [Emla] 5 gm TP ONCE #1 tube 03/24/20 Unknown Rx oxyCODONE /ACETAMINOPHEN [Percocet 1 - 2 tab PO Q6HR PRN #20 tablet 03/24/20 Unknown Rx 5/325 mg] traMADoL [Ultram] 50 mg PO Q4HR PRN #20 tablet 02/15/21 Unknown Rx ED Physical Exam - General Limitations: No Limitations General appearance: alert, in no apparent distress - Head Head exam: Present: atraumatic, normocephalic - Eye Eye exam: Present: normal appearance, PERRL, EOMI Pupils: Present: normal accommodation - ENT ENT exam: Present: mucous membranes moist - Neck Neck exam: Present: normal inspection - Respiratory Respiratory exam: Present: normal lung sounds bilaterally. Absent: respiratory distress - Cardiovascular Cardiovascular Exam: Present: regular rate, normal rhythm. Absent: systolic murmur, diastolic murmur, rubs, gallop - GI/Abdominal GI/Abdominal exam: Present: soft, normal bowel sounds - Extremities Exam Extremities exam: Present: normal inspection, tenderness - Expanded Lower Extremity Exam Left Knee exam: Present: normal inspection, full ROM. Absent: tenderness, swelling, abrasion Ankle exam: Present: tenderness, swelling. Absent: abrasion, laceration, dislocation, erythema Neuro vascular tendon exam: Absent: pulse deficit, abnormal cap refill - Back Exam Back exam: Present: normal inspection, full ROM. Absent: CVA tenderness (R) - Neurological Exam Neurological exam: Present: alert, oriented X3 - Psychiatric Psychiatric exam: Present: normal affect, normal mood - Skin Skin exam: Present: warm, dry, intact, normal color. Absent: rash ED Course Vital Signs 02/15/21 00:08 Temperature 98.4 F Pulse Rate 86 Respiratory 16 Rate Blood Pressure 132/74 O2 Sat by Pulse 100 Oximetry ED Lower Extremity MDM - Radiology Data Radiology results: report reviewed [facility] [address] [place] [address] XRay Report Signed Patient: JEFF PATINO MR#: [id number] : 1990 Acct:[id number] Age/Sex: 31 / F ADM Date: 02/14/21 Loc: ED Attending Dr: Ordering Physician: NEMESIO VIEIRA MD Date of Service: 02/15/21 Procedure(s): XR ankle 3+V LT Accession Number(s): [id number] cc: ED MD DARIEL Fluoro Time In Minutes: XR ankle 3+V LT INDICATION / CLINICAL INFORMATION: injuryy fell down stairs. TODAY. COMPARISON: None available. FINDINGS: No acute fracture. Normal alignment. Joint spaces are preserved. No destructive osseous lesion or suspicious periosteal reaction. Impression: 1.No acute fracture. Signer Name: Wisam Ayon MD Signed: 02/15/2021 12:47 AM Workstation Name: [id number] Transcribed By: CS Dictated By: Wisam Ayon MD Electronically Authenticated By: Wisam Ayon MD Signed Date/Time: 02/15/2146 DD/ TD/TT: Print Cancel - Medical Decision Making 31-year-old female sent by department today for right right ankle pain after a misstep resulting in ankle sprain she was placed on crutches and given a Velcro stirrup brace ice therapy and analgesic pain control. Critical care attestation.: If time is entered above; I have spent that time in minutes in the direct care of this critically ill patient, excluding procedure time. ED Disposition Clinical Impression: Ankle sprain Disposition: TO HOME OR SELFCARE Is pt being admited?: No Does the pt Need Aspirin: No Condition: Stable Instructions: How to Use a Stirrup Ankle Brace, [id number], Ankle Sprain, Phase I Rehab-SportsMed, Elastic Bandage and RICE Therapy, How to Use Cold Therapy Prescriptions: traMADoL [Ultram] 50 mg PO Q4HR PRN #20 tablet PRN Reason: Pain Referrals: PRIMARY CARE, [Primary Care Provider] - 3-5 Days [facility] [Provider Group] - 3-5 Days
== END 2021-02-15 03:24 | disposition home or self-care (01) ==
LOC: ED 22:41
DX: S93.402A Sprain of unspecified ligament of left ankle, initial encounter (principal); F41.9 Anxiety disorder, unspecified; J45.909 Unspecified asthma, uncomplicated; Z98.890 Other specified postprocedural states; Z88.8 Allergy status to other drugs, medicaments and biological substances; Z79.899 Other long term (current) drug therapy; W10.9XXA Fall (on) (from) unspecified stairs and steps, initial encounter; Y93.89 Activity, other specified; Y92.099 Unspecified place in other non-institutional residence as the place of occurrence of the external cause; Y99.8 Other external cause status